=== PATIENT | male | born 1960 | race Caucasian/White ===

== ENCOUNTER 2020-02-09 09:45 | Emergency (ER) | payer MEDICAID ==
[~2020-02-09] VITALS: Ht 177.8 cm; Wt 90.7 kg
[2020-02-09 10:01] LABS: BE -0.9 mmol/L (-2 to +3); PCO2 36.1 mmHg (35.0-45.0); pH 7.422 (7.340-7.450)
[2020-02-09 10:09] LABS: ABSOLUTE BASOPHILS 0.1 thou/uL (0.0-0.2); ABSOLUTE EOSINOPHILS 0.2 thou/uL (0.0-0.7); ABSOLUTE LYMPHOCYTES 2.9 thou/uL (0.8-5.3); ABSOLUTE NEUTROPHILS 6.9 thou/uL (1.6-8.1); BASOPHILS 1.2 %; EOSINOPHILS 1.6 %; HEMATOCRIT 44.5 % (42.0-52.0); HEMOGLOBIN 15.6 gm/dL (14.0-18.0); LYMPHOCYTES 26.2 %; MCH 33.8 pg (26.0-34.0); MCHC 34.9 g/dL (28.0-37.0); MCV 96.6 fL (80.0-100.0); MONOCYTES 8.6 %; MPV 6.7 fl. (7.2-11.1); NUCLEATED RBCS 0 /100WBC; PLATELET COUNT* 289 thou/uL (150-400); POLYS 62.4 %; RBC 4.61 mil/uL (4.50-6.00); RDW-CV 14.6 % (10.5-14.5); WBC 11.1 thou/uL (4.0-11.0)
[2020-02-09 10:22] LABS: APTT 25.8 Seconds (25.0-31.3); CALCIUM 8.2 mg/dL (8.5-10.1); CREATININE 1.3 mg/dL (0.6-1.3); INR 1.1; POTASSIUM 4.5 mmol/L (3.5-5.1); PROTIME 11.3 Seconds (9.20-11.50)
[2020-02-09 10:31] LABS: ALBUMIN 3.2 g/dL (3.4-5.0); MAGNESIUM 2.1 mg/dL (1.8-2.4); TOTAL BILIRUBIN 0.2 mg/dL (<0.1-1.0); TOTAL PROTEIN 7.1 g/dL (6.4-8.2)
[2020-02-09] MEDS ORDERED: VENTOLIN HFA 1818 GM INH (10:35)
[2020-02-09 10:54] VITALS: BP 135/70
--- NOTE | 2020-02-09 15:11 | EKG ---
[place] [address] ELECTROCARDIOGRAM REPORT Name: ALEE CLEVELAND Room: [facility]#: [id number] Admission: 02/09/20 Attend Phys: Discharge: 02/09/20 Date of : 56 Date of Service: 02/09/20 1010 Report #: [id number] THIS REPORT FOR: //name// [facility] ED Test Date: 2020-02-09 Test Time: 10:10:29 Pat Name: ALEE CLEVELAND Department: Room: Gender: Spinneret Person: : 1960 Requested By: Jorge Luis Stanford Order Number: [id number] MD: Peewee Galeano Measurements Intervals [place] Rate: 81 P: 47 IL: 148 QRS: -16 QRSD: 96 T: 120 QT: 390 QTc: 453 Interpretive Statements Sinus rhythm Inferior infarct, old Lateral leads are also involved Baseline wander in lead(s) V5 No previous ECG available for comparison Electronically Signed On 02-09-2020 15:10:24 CDT by Peewee Galeano [email or web address] <ELECTRONICALLY SIGNED> By: Peewee Galeano MD, [facility] 02/09/20 1510 1010 1010 Peewee Galeano MD, [facility] /EPI
== END 2020-02-09 10:57 | disposition home or self-care (01) ==
LOC: M.ERS 09:45
PROVIDERS: Family Medicine
DX: J44.1 Chronic obstructive pulmonary disease with (acute) exacerbation (principal); J70.5 Respiratory conditions due to smoke inhalation; F17.210 Nicotine dependence, cigarettes, uncomplicated; Z95.1 Presence of aortocoronary bypass graft; Z86.73 Personal history of transient ischemic attack (TIA), and cerebral infarction without residual deficits